=== PATIENT | female | born 1990 | race Two or more races ===

== ENCOUNTER → 2024-11-18 | Outpatient (CLI) | payer MEDICAID, SELFPAY ==
--- NOTE | 2024-11-18 15:30 | XR_ITS ---
Examination: Transvaginal ultrasound of the pelvis, complete Technique: Transvaginal sonographic images pelvis performed using bah scale imaging Exam date and time: November 18, 2024 1545 hours INDICATIONS: Pelvic pain 6 months FINDINGS: Uterus 9.6 x 5.0 x 6.1 cm No uterine mass Intrauterine device satisfactory position Right ovary 2.8 x 2.3 cm arterial flow Left ovary 2.3 x 2.1 cm arterial flow IMPRESSION: Intrauterine device satisfactory position.
== END | disposition home or self-care (01) ==
PROVIDERS: PCP Physician Assistant; Referring Provider Physician Assistant; Visit Provider Physician Assistant
DX: Z30.431 Encounter for routine checking of intrauterine contraceptive device (principal); R10.2 Pelvic and perineal pain
CPT/HCPCS: 76830